=== PATIENT | male | born 1975 | race Caucasian/White ===

== ENCOUNTER 2022-05-11 13:35 | Inpatient (IN) | payer MEDICAID ==
[~2022-05-11] VITALS: Ht 165.1 cm; Wt 64.9 kg
[2022-05-11] MEDS ORDERED: NITROGLYCERIN 0.4 MG TAB SL ONE (13:45)
[2022-05-11 13:47] VITALS: BP 106/65
--- NOTE | 2022-05-11 13:50 | NUR ---
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 PT GCS 15, PALE COOL DIAPHORETIC. NSR ON MONITOR. IV NOTED TO LEFT AC #18GUAGE. DR KEMP AT BEDSIDE.
[2022-05-11] MEDS ORDERED: fentaNYL citrate 0.05 MG/ML VIAL ONE (13:54)
[2022-05-11] MEDS ORDERED: fentaNYL citrate 0.05 MG/ML VIAL IM ONE (13:55)
[2022-05-11 14:00] LABS: BASOPHILS # (AUTO) 0.1 K/uL (0.00-0.22); BASOPHILS % (AUTO) 0.6 % (0.0-2.0); EOSINOPHILS # (AUTO) 0.1 K/uL (0-0.4); EOSINOPHILS % (AUTO) 0.6 % (0.0-4.0); HEMATOCRIT 41.5 % (36-52); HEMOGLOBIN 14.4 g/dL (12.0-18.0); LYMPHOCYTES # (AUTO) 2.4 K/uL (2.0-11.5); LYMPHOCYTES % (AUTO) 18.8 % (20.5-51.1); MEAN CORPUSCULAR HEMOGLOBIN 30 pg (27-31); MEAN CORPUSCULAR HGB CONC 35 g/dL (33-37); MEAN CORPUSCULAR VOLUME 87.4 fL (80-94); MONOCYTES # (AUTO) 0.8 K/uL (0.8-1.0); MONOCYTES % (AUTO) 6.2 % (1.7-9.3); NEUTROPHILS # (AUTO) 9.3 K/uL (1.8-7.7); NEUTROPHILS % (AUTO) 73.8 % (42.2-75.2); PLATELET COUNT (AUTO) 346 K/uL (140-450); RED BLOOD CELL COUNT(AUTO) 4.74 MIL/uL (4.20-6.10); RED CELL DISTRIBUTION WIDTH 12.4 % (11.6-13.7); WHITE BLOOD COUNT (AUTO) 12.6 K/uL (4.8-10.8)
--- NOTE | 2022-05-11 14:20 | NUR ---
ASSISTED IN PT TRANSPORT TO CT
[2022-05-11 14:28] LABS: ANION GAP 17.6 (8-16); ASPARTATE AMINOTRANSFERASE 181 U/L (15-37); CARBON DIOXIDE 25.4 mmol/L (21-32); CHLORIDE 102 mmol/L (98-107); CREATININE 1.2 mg/dL (0.6-1.3); GFR ARICAN-AMERICAN 83 mL/min (>90); GLUCOSE 192 mg/dL (74-106); SODIUM SERUM 142 mmol/L (136-145); TOTAL BILIRUBIN 1.1 mg/dL (0.0-1.0); UREA NITROGEN, BLOOD 14 mg/dL (7-18)
--- NOTE | 2022-05-11 14:38 | NUR ---
ABG RETRIEVED AND REPORTED TO ERMD. PT PLACED ON 4L NC FOR COMFORT
[2022-05-11] MEDS ORDERED: ONDANSETRON 4 MG/2 ML VIAL IVP ONE (14:45)
[2022-05-11] MEDS ORDERED: HYDROmorphone PFS 2 MG/ML SYR IVP ONE (14:45)
--- NOTE | 2022-05-11 15:00 | NUR ---
PT MEDICATED FOR PAIN, NOW RESTING CALMLY
[2022-05-11] MEDS ORDERED: NACL 0.9% 1,000 ML IV ONE ×2 (15:10)
[2022-05-11] MEDS: NACL 0.9% 1,000 ML IV SCH ×2 (16:40→18:44)
[2022-05-11] MEDS ORDERED: MAG SULF 2000 MG/WATER PREMIX 50 ML IV PRN (16:45)
[2022-05-11] MEDS ORDERED: ACETAMINOPHEN 325 MG TAB PO PRN (16:45)
[2022-05-11] MEDS ORDERED: ONDANSETRON 4 MG/2 ML VIAL IVP PRN (16:45)
[2022-05-11] MEDS ORDERED: POTASSIUM CHLORIDE 10 MEQ TABER PO PRN (16:45)
[2022-05-11 18:45] VITALS: BP 148/95
--- NOTE | 2022-05-11 19:00 | NUR ---
RECEIVED PT FROM ER NURSE VIA [facility] FOR CONTINUITY OF CARE.PT IS ALERT AND AWAKE, PIV INTACT,NO DISTRESS NOTED
[2022-05-11] MEDS: MORPHINE SULFATE 2 MG/ML SYR IVP PRN ×2 (19:03→23:31)
[2022-05-11] MEDS: LORazepam 2 MG/ML VIAL IVP PRN (20:38)
[2022-05-11] MEDS: LEVOFLOXACIN 500 MG/D5W PREMIX 100 ML IV SCH (21:27)
[2022-05-12] VITALS: BP 149/95
[2022-05-12] MEDS: DOCUSATE SODIUM 100 MG GELCAP PO PRN ×2 (00:57→18:47)
--- NOTE | 2022-05-12 01:28 | NUR ---
TEXTED DR JOHNSON REGARDING PATIENT'S POTASSIUM OF 3.0. MD ORDERED K RIDER 40 MEQ. ORDER CARRIED OUT
[2022-05-12] MEDS ORDERED: HYDROmorphone 1 MG/ML AMP IVP SCH (02:45)
[2022-05-12] MEDS ORDERED: KCL 20 MEQ/WATER INJ PREMIX 200 ML IV SCH (02:45)
[2022-05-12] MEDS ORDERED: HYDROmorphone 1 MG/ML AMP ONE (02:55)
--- NOTE | 2022-05-12 03:05 | NUR ---
PATIENT COMPLAINED OF 10/10 ABDOMINAL PAIN. MORPHINE SULFATE DID NOT RELIEVE HIS PAIN. TEXTED MD TO ASK FOR A STRONGER PAIN MEDICATION. MD ORDERED DILAUDID I MG IVP. ORDER CARRIED OUT
--- NOTE | 2022-05-12 03:30 | NUR ---
PATIENT FELL ASLEEP AFTER ADMINISTERING DILAUDID
[2022-05-12 04:00] VITALS: BP 150/89
[2022-05-12] MEDS: MORPHINE SULFATE 2 MG/ML SYR IVP PRN ×3 (05:35→20:59)
[2022-05-12] MEDS: NACL 0.9% 1,000 ML IV SCH ×3 (05:51→18:05)
[2022-05-12 06:45] LABS: HEMATOCRIT 42.5 % (36-52); HEMOGLOBIN 14.9 g/dL (12.0-18.0); LYMPHOCYTES # (AUTO) 0.4 K/uL (2.0-11.5); LYMPHOCYTES % (AUTO) 3.5 % (20.5-51.1); MEAN CORPUSCULAR HEMOGLOBIN 31 pg (27-31); MEAN CORPUSCULAR HGB CONC 35 g/dL (33-37); MEAN CORPUSCULAR VOLUME 88.5 fL (80-94); MONOCYTES # (AUTO) 0.6 K/uL (0.8-1.0); MONOCYTES % (AUTO) 4.8 % (1.7-9.3); NEUTROPHILS # (AUTO) 11.1 K/uL (1.8-7.7); NEUTROPHILS % (AUTO) 91.7 % (42.2-75.2); PLATELET COUNT (AUTO) 275 K/uL (140-450); RED CELL DISTRIBUTION WIDTH 12.4 % (11.6-13.7); WHITE BLOOD COUNT (AUTO) 12.1 K/uL (4.8-10.8)
[2022-05-12 06:46] LABS: ALBUMIN 3.9 g/dL (3.4-5.0); ANION GAP 15.7 (8-16); CARBON DIOXIDE 25.3 mmol/L (21-32); CREATININE 0.9 mg/dL (0.6-1.3); TOTAL BILIRUBIN 0.7 mg/dL (0.0-1.0)
--- NOTE | 2022-05-12 07:10 | NUR ---
RECEIVED REPORT FROM NIGHTSGAFT NURSE CITLALI FOR CONTINUITY OF CARE. PT IS IN STABLE CONDITION, CURRENTLY AWAKE AND A/OX4. BREATHING IS EVEN, REGULAR AND UNLABORED ON ROOM AIR. PT IS CONTINENT OF THE BOWELS AND BLADDER AND ABLE TO AMBULATE INDEPENDENTLY. SKIN IS INTACT. PT CURRENTLY RUNNING 40MEQ K-RIDER HUNG BY NIGHTSGAFT SHANTAL GODWIN. PT COMPLAINING OF ABDOMINAL PAIN 02/14 CURRENTLY.
--- NOTE | 2022-05-12 07:44 | NUR ---
MEDICAL STUDENT IN TO SEE PT FOR DR. THAO. PT COMPLAINING OF SEVERE ABDOMINAL PAIN, NOTIFIED MED STUDENT FOR ADDITIONAL ORDERS. AWAITING FURTHER ORDERS.
[2022-05-12 08:00] VITALS: BP 153/102
[2022-05-12] MEDS ORDERED: HYDROmorphone PFS 2 MG/ML SYR IVP SCH (08:01)
--- NOTE | 2022-05-12 08:18 | NUR ---
MEDIATED WITH ORDERED ONE TIME DOSE DILAUDID 2MG.
--- NOTE | 2022-05-12 10:00 | NUR ---
VISUALLY ASSESSED PT, PT CURRENTLY SLEEPING. NO SIGNS OF DISTRESS NOTED AT THIS TIME.
[2022-05-12] MEDS: LEVOFLOXACIN 500 MG/D5W PREMIX 100 ML IV SCH (10:30)
--- NOTE | 2022-05-12 11:21 | NUR ---
PATIENT HAS BEEN SCREENED AND CATEGORIZED LOW NUTRITION RISK. PATIENT WILL BE SEEN WITHIN 7 DAYS OF ADMISSION. 05/11/22-05/18/[address]
[2022-05-12 12:00] VITALS: BP 156/96
--- NOTE | 2022-05-12 12:00 | NUR ---
DC PLANNING ASSESSMENT WAS COMPLETED UTILIZING WEB EDITORWINSOME, WEB EDITOR ID [id number]. PATIENT REPORTS RESIDING AT HOME WITH HIS FAMILY AT THE ADDRESS LISTED ON FILE. PATIENT IDENTIFIED OLGA SAPP, PARTNER, EMERGENCY CONTACT AND MDM. PATIENT DENIES HAVING AD IN PLACE AND DECLINED AD OFFERED BY SW. PATIENT REPORTS MEETING WITH PCP, NEEDED, LAST VISIT; 2020' PATIENT DENIES TAKING MEDICATIONS AT THIS TIME AND DENIED BARRIERS IN ACCESS TO MEDICATION IF NEEDED. PATIENT REPORTS PICKING UP MEDICATION FROM [facility] ON [address] IN [place], WHEN NEEDED. PATIENT REPORTS ADEQUATE FOOD SOURCE. 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 PATIENT DENIES MH/SA HX. PATIENT REPORTS LEGAL/FRAUD ISSUES AND WAS REQUESTING LEGAL ADVICE. SW DIRECTED PATIENT TO SENIOR EXECUTIVE ASSISTANT PROVIDED BY LOCAL COURT HOUSES, LEGAL ADVICE IS OUT OF MY SCOPE OF PRACTICE. PATIENT IN UNDERSTANDING. PATIENT REPORTS DC PLAN IS TO RETURN HOME, WITH PARTNER PROVIDING TRANSPORTATION AND AIDING IN CARE, IF REQUIRED. SADIA INQUIRED ON ADDITIONAL RESOURCES NEEDED, PATIENT DECLINED.
--- NOTE | 2022-05-12 12:50 | NUR ---
DR. PARTIDA IN TO SEE PT, PER . PT MAY HAVE LAPAROSCOPIC CHOLECYSTECTOMY TOMORROW IF PANCREATIC LAB VALUES IMPROVE, OR ON TUESDAY. PT AWARE, AND SIGNED CONSENT FORM.
--- NOTE | 2022-05-12 15:07 | NUR ---
PT COMPLAINED OF LUQ ABDOMINAL PAIN 12/15. MEDICATED PRN MORPHINE.
[2022-05-12 16:00] VITALS: BP 162/96
--- NOTE | 2022-05-12 16:40 | NUR ---
MUSIC INDUSTRY INTERN NOTIFIED ME OF PT'S HIGH BP 162/96. PT ALSO COMPLAINED OF FEELING BLOATED AND CONSTIPATED. NOTIFIED DR. THAO FOR PRNS.
[2022-05-12] MEDS ORDERED: POLYETHYLENE GLYCOL 17 GM/PKT PO PRN (17:50)
[2022-05-12] MEDS: hydrALAZINE 20 MG/ML VIAL IVP PRN (18:46)
--- NOTE | 2022-05-12 18:46 | NUR ---
MEDICATED PT WITH PRN HYDRALAZINE FOR SBP>160 AND MIRALX FOR CONSTIPATION.
--- NOTE | 2022-05-12 19:20 | NUR ---
ENDORSED PT TO NIGHTSHIFT NURSE BRIDGETTE FOR CONTINUITY OF CARE. PT IN STABLE CONDITION.
--- NOTE | 2022-05-12 19:21 | NUR ---
RECEIVED ENDORSEMENT FOR CONTINUITY OF CARE FROM ANDREA MURGUIA, PATIENT WAS STABLE AT THE CHANGE OF SHIFT. PATIENT WAS IN BED ALERT ABLE TO HOLD A CONVERSATION WITH FAMILY AT BEDSIDE. PATIENT WAS INFORMED THAT AFTER MIDNIGHT NPO FOR POSSIBLE SURGERY. PATIENT DENIED ANY PAIN/DISCOMFORT. NURSING NOTED PATIENT WAS BREATHING WITHOUT DISTRESS OR DIFFICULTIES. SIDE RAILS UP X 2. CALL LIGHT WITHIN REACH AND EXPLAINED TO PLEASE USE FOR ASSISTANCE AND NEEDS. PATIENT UNDERSTANDS AND AGREES. PER PATIENT PERMISSION HIS DAUGHTER WAS INFORMED OF THE POSSBLE SURGERY BASED ON HIS LABS. [email or web address]
[2022-05-12 20:00] VITALS: BP 164/93
--- NOTE | 2022-05-12 21:37 | NUR ---
PATIENT WAS GIVEN PRN PAIN MANAGEMENT BY COVERING SENIOR CARE ASSISTANT (KAL). NOTED BP WAS 164/93 HR 94. PATIENT COMPLAINED OF STOMACH PAIN. PACING IN HIS ROOM AND HALLWAY. ENCOURAGED TO PLEASE WAIT IN ROOM TO PREVENT INJURY AND IV PULLING OUT. PATIENT UNDERSTOOD AND COMPLIED. [email or web address]
[2022-05-12] MEDS: ZOLPIDEM 10 MG TAB PO PRN (22:52)
--- NOTE | 2022-05-12 23:21 | NUR ---
PATIENT IN BED ASLEEP AT THIS TIME. SIDE RAILS UP AND CALL LIGHT WITHIN REACH. NO NOTED S/S OF PAIN/DISCOMFORT. NO NOTED RESPIRATORY DISTRESS. NURSING WILL CONTINUE TO MONITOR FOR PAIN MANAGEMENT. [email or web address]
--- NOTE | 2022-05-13 01:21 | NUR ---
PATIENT IN BED ASLEEP. PATIENT HAS NO NOTED S/S OF PAIN. CALL LIGHT WITHIN REACH. [email or web address]
[2022-05-13] MEDS: hydrALAZINE 20 MG/ML VIAL IVP PRN (02:04)
[2022-05-13] MEDS: NACL 0.9% 1,000 ML IV SCH ×4 (02:17→20:38)
--- NOTE | 2022-05-13 02:17 | NUR ---
PATIENT COMPLAINED OF PAIN, COVERING RN WAS GIVEN BP AND HR TO GIVE THE MEDICATION. NURSING WILL REASSESS FOR EFFECTIVENESS. [email or web address]
[2022-05-13] MEDS: MORPHINE SULFATE 2 MG/ML SYR IVP PRN ×3 (02:30→23:22)
--- NOTE | 2022-05-13 03:42 | NUR ---
PATIENT CONTINUES TO ASK FOR MEDICATION BUT IT IS NOT DUE. USED TV DISTRACTION AND ENCOURAGED TO GET REST FOR POSSIBLE SURGERY BASED ON THE LAB RESULTS. SIDE RAILS UP CALL LIGHT WITHIN REACH. [email or web address]
[2022-05-13 04:00] VITALS: BP 158/95
--- NOTE | 2022-05-13 05:09 | NUR ---
PATIENT WAS THRASHING AROUND IN HIS BED D/T PAIN COMPLAINTS. COVERING RN WAS INFORMED. PATIENT WAS EDUCATION ON REQUESTING MEDICATIONS TOO SOON CAN BUILD TO ANXIETY. NURSING REMINDED PATIENT OF POSSIBLE SURGERY TODAY BASED ON THE LAB VALUES. SIDERAILS UP X 2 . CALL LIGHT WITHIN REACH. [email or web address]
--- NOTE | 2022-05-13 05:53 | NUR ---
PATIENT PULLED OUT IV BY CONSTANTLY STANDING OUTSIDE OF HIS ROOM YELLING FOR NURSE AFTER USING THE CALL LIGHT. PATIENT BECAME ANGRY BECAUSE HE PULLED THE IV AND WANTS IV MEDICATION. PATIENT WAS CLEANED UP THEN WAS ASKED TO REMAIN IN HIS ROOM UNTIL NURSING FINISH AM MEDICATION TO OTHER PATIENTS. COVERING RN WAS INFORMED TO POSSIBLE RESTART AN IV. [email or web address]
--- NOTE | 2022-05-13 07:04 | NUR ---
RECEIVED REPORT FROM NIGHTSHIFT NURSE ANGELES FOR CONTINUITY OF CARE. PT IS IN STABLE CONDITION. PT IS A/OX4, BREATHING EVEN, REGULAR AND UNLABORED ON ROOM AIR. PT IS CONTINENT OF THE BOWEL AND BLADDER, AND ABLE TO AMBULATE INDEPENDENTLY. SKIN IS INTACT. PER NIGHTSHIFT NURSE ANGELES, PT REMOVED IV AND HAS REFUSED ONE SINCE 0600. WILL REINFORCE EDUCATION ON IV NECESSITY AND OVERALL HEALTHCARE PLAN.
--- NOTE | 2022-05-13 07:04 | NUR ---
PATIENT WAS READY TO LEAVE AMA UNTIL NURSING GAVE EDUCATION TO THE DANGERS AND THE DELAY TO POSSIBLE SURGERY. PATIENT WAS STABLE DURING SHIFT CHANGE. PATIENT WAS ENDORSED TO HOLGER MURGUIA. [email or web address]
[2022-05-13 07:10] LABS: BASOPHILS % (AUTO) 0.2 % (0.0-2.0); HEMATOCRIT 37.8 % (36-52); HEMOGLOBIN 13.2 g/dL (12.0-18.0); LYMPHOCYTES # (AUTO) 0.8 K/uL (2.0-11.5); LYMPHOCYTES % (AUTO) 6.1 % (20.5-51.1); MEAN CORPUSCULAR HEMOGLOBIN 31 pg (27-31); MEAN CORPUSCULAR HGB CONC 35 g/dL (33-37); MEAN CORPUSCULAR VOLUME 87.6 fL (80-94); MONOCYTES # (AUTO) 0.7 K/uL (0.8-1.0); MONOCYTES % (AUTO) 4.9 % (1.7-9.3); NEUTROPHILS # (AUTO) 12.2 K/uL (1.8-7.7); NEUTROPHILS % (AUTO) 88.8 % (42.2-75.2); PLATELET COUNT (AUTO) 228 K/uL (140-450); RED BLOOD CELL COUNT(AUTO) 4.32 MIL/uL (4.20-6.10); RED CELL DISTRIBUTION WIDTH 12.5 % (11.6-13.7); WHITE BLOOD COUNT (AUTO) 13.8 K/uL (4.8-10.8)
[2022-05-13 07:32] LABS: ALBUMIN 3.4 g/dL (3.4-5.0); ANION GAP 15.8 (8-16); CARBON DIOXIDE 23.7 mmol/L (21-32); CREATININE 0.7 mg/dL (0.6-1.3); POTASSIUM 3.5 mmol/L (3.5-5.1)
[2022-05-13 08:00] VITALS: BP 148/95
--- NOTE | 2022-05-13 08:00 | NUR ---
HYDRALAZINE REASSESSMENT NOT DOCUMENTED BY NIGHTSHIFT NURSE LAST NIGHT.
--- NOTE | 2022-05-13 09:00 | NUR ---
PT EDUCATED ON IV NECESSITY AND MEDICATIONS ORDERED. NEW IV INSERTED ON RIGHT UPPER ARM.
[2022-05-13] MEDS: LEVOFLOXACIN 500 MG/D5W PREMIX 100 ML IV SCH (09:06)
[2022-05-13 09:43] LABS: PROTHROMBIN TIME 11.4 secs (10.8-13.4)
[2022-05-13] MEDS: LORazepam 2 MG/ML VIAL IVP PRN (10:16)
--- NOTE | 2022-05-13 10:16 | NUR ---
HARISH ZAMBRANO IN TO SEE PT, NOTIFIED PT OF POSSIBLE LAP CHRIS PENDING PANCREATIC ENZYME LEVELS. PT COMPLAINED OF ANXIETY AND RESTLESSNESS. MEDICATED PRN ATIVAN.
--- NOTE | 2022-05-13 12:14 | NUR ---
PT VISUALLY ASSESSED. CURRENTLY SLEEPING, NO SIGNS OF PAIN OR DISTRESS NOTED.
--- NOTE | 2022-05-13 14:15 | NUR ---
PT VISUALLY ASSESSED. CURRENTLY SLEEPING, NO SIGNS OF PAIN OR DISTRESS NOTED.
--- NOTE | 2022-05-13 14:15 | NUR ---
MESSAGED DR PARTIDA REGARDING PTS SURGERY BEING TODAY OR NOT, HE SAID IT WILL BE TOMORROW MORNING AT 0730. ALSO ASKED IF PATIENT WAS ALLOWED TO EAT AND WHAT DIET; HE SAID HE COULD EAT AND PUT HIM ON A LOW FAT DIET TILL MIDNIGHT.
--- NOTE | 2022-05-13 15:45 | NUR ---
GAVE PT A SANDWICH, WATER AND JELLO TO HOLD PATIENT OVER TILL DINNER. PTS FAMILY AT BEDSIDE. PT IN BED RESTING, NO SIGNS OF DISTRESS OR LABORED BREATHING.
[2022-05-13 16:00] VITALS: BP 154/98
--- NOTE | 2022-05-13 19:00 | NUR ---
PT MEDICATED FOR PAIN WITH PRN MORPHINE
--- NOTE | 2022-05-13 19:10 | NUR ---
ENDORSEMENT OF CARE TO SECURITY INCIDENT HANDLER NURSE AKUA RN FOR CONTINUITY OF CARE
--- NOTE | 2022-05-13 19:15 | NUR ---
RECEIVED REPORT FROM DAY SHIFT RN FOR CONTINUITY OF CARE. PT IS AAOX4. PT IS ON RA. FAMILY BY BEDSIDE. PT HAS OMEGA 20 GAUGE RUNNING NS 150 CC/HR. PT DENEIS ANY PAIN AND HAS NO COMPLAINS. CALL LIGHT WITHIN REACH. WILL CONTINUE TO MONITOR THE PT.
[2022-05-13 20:00] VITALS: BP 142/95
--- NOTE | 2022-05-13 20:39 | NUR ---
NEW IVF HUNG. PT IS ASLEEP. NOT IN ANY DISTRESS. WILL CONTINUE TO MONITOR THE PT.
--- NOTE | 2022-05-13 23:30 | NUR ---
PT COMPLAINED OF ABD PAIN 02/14. MORPHINE GIVEN PER MD ORDER. NO OTHER COMPLAINS.
[2022-05-14] MEDS: MORPHINE SULFATE 2 MG/ML SYR IVP PRN ×3 (03:31→22:24)
--- NOTE | 2022-05-14 03:35 | NUR ---
PT COMPLAINED OF ABD PAIN. GAVE MORPHINE PER MD ORDER. NO OTHER COMPLAINS. WILL CONTINUE TO MONITOR THE PT.
[2022-05-14 04:00] VITALS: BP 166/101
[2022-05-14] MEDS: hydrALAZINE 20 MG/ML VIAL IVP PRN (04:11)
[2022-05-14 04:56] LABS: BASOPHILS % (AUTO) 0.1 % (0.0-2.0); EOSINOPHILS % (AUTO) 0.1 % (0.0-4.0); HEMATOCRIT 40.1 % (36-52); HEMOGLOBIN 14.1 g/dL (12.0-18.0); LYMPHOCYTES # (AUTO) 0.9 K/uL (2.0-11.5); MEAN CORPUSCULAR HEMOGLOBIN 31 pg (27-31); MEAN CORPUSCULAR HGB CONC 35 g/dL (33-37); MEAN CORPUSCULAR VOLUME 87.5 fL (80-94); MONOCYTES # (AUTO) 0.8 K/uL (0.8-1.0); MONOCYTES % (AUTO) 5.7 % (1.7-9.3); NEUTROPHILS # (AUTO) 12.6 K/uL (1.8-7.7); NEUTROPHILS % (AUTO) 88.1 % (42.2-75.2); PLATELET COUNT (AUTO) 204 K/uL (140-450); RED BLOOD CELL COUNT(AUTO) 4.58 MIL/uL (4.20-6.10); RED CELL DISTRIBUTION WIDTH 12.5 % (11.6-13.7); WHITE BLOOD COUNT (AUTO) 14.3 K/uL (4.8-10.8)
[2022-05-14] MEDS: NACL 0.9% 1,000 ML IV SCH ×3 (05:04→18:24)
[2022-05-14 05:17] LABS: ANION GAP 15.4 (8-16); CREATININE 0.7 mg/dL (0.6-1.3); POTASSIUM 3.4 mmol/L (3.5-5.1)
--- NOTE | 2022-05-14 07:13 | NUR ---
ENDORSED PT TO DAY SHIFT RN FOR CONTINUITY OF CARE. PT IS STABLE.
[2022-05-14] MEDS ORDERED: BUPIVACAINE-MPF/EPI 0.25% 30 ML VIAL INJ ONE (07:14)
--- NOTE | 2022-05-14 07:15 | NUR ---
RECEIVED REPORT FROM NIGHTSHIFT NURSE AKUA FOR CONTINUITY OF CARE. PT IS IN STABLE CONDITION, CURRENTLY AWAKE AND A/OX4. BREATHING IS EVEN, REGULAR AND UNLABORED ON ROOM AIR. PT IS CONTINENT OF THE BOWELS AND BLADDER AND ABLE TO AMBULATE INDEPENDENTLY. SKIN IS INTACT. PT CURRENTLY RUNNING NS 150ML/HR. IV IS A 20G ON THE R UPPER ARM INTACT AND PATENT. PT HAS NO COMPLAINT OF ANY PAIN AT THIS TIME. SAFETY PRECAUTIONS IN PLACE, CALL LIGHT WITHIN REACH, TWO SIDE RAILS UP, AND WILL CONTINUE TO MONITOR.
--- NOTE | 2022-05-14 07:20 | NUR ---
PT TAKEN TO SURGERY BY SURGICAL STAFF.
[2022-05-14] MEDS ORDERED: fentaNYL citrate 0.05 MG/ML VIAL ONE (07:50)
[2022-05-14] MEDS ORDERED: PROPOFOL 200 MG/20 ML VIAL IV ONE ×2 (07:51→10:01)
[2022-05-14] MEDS ORDERED: ROCURONIUM 50 MG/5 ML VIAL IV ONE ×3 (07:51→10:01)
[2022-05-14] MEDS ORDERED: ONDANSETRON 4 MG/2 ML VIAL ONE ×2 (07:51→10:01)
[2022-05-14] MEDS ORDERED: SUCCINYLCHOLINE CHLORIDE 200 MG/10 ML VIAL IVP ONE (07:51)
[2022-05-14] MEDS ORDERED: KETOROLAC 30 MG/ML VIAL ONE ×2 (07:51→10:01)
[2022-05-14] MEDS ORDERED: SUGAMMADEX SODIUM 200 MG/2 ML VIAL IV ONE ×2 (07:52→10:01)
[2022-05-14] MEDS ORDERED: HYDROmorphone PFS 2 MG/ML SYR ONE ×2 (07:52→10:01)
[2022-05-14] MEDS ORDERED: DEXAMETHASONE 4 MG/ML VIAL ONE (07:52)
[2022-05-14] MEDS ORDERED: HYDROmorphone 1 MG/ML AMP IVP PRN (08:00)
[2022-05-14] MEDS ORDERED: ONDANSETRON 4 MG/2 ML VIAL IVP PRN (08:00)
--- NOTE | 2022-05-14 08:22 | NUR ---
RECEIVE ENDORSEMENT FROM PM SHIFT WHILE PATIENT RESTING IN BED, PRE-OPERATION FOR LAP COLI, PIV NS 150ML/HR INFUSING VIA OMEGA 20G. WILL CONTINUE TO MONITOR
[2022-05-14] MEDS ORDERED: LABETALOL 100 MG/20 ML VIAL ONE (08:26)
[2022-05-14] MEDS: LEVOFLOXACIN 500 MG/D5W PREMIX 100 ML IV SCH (09:00)
[2022-05-14] MEDS ORDERED: fentaNYL citrate 0.05 MG/ML - 50mL vial IV ONE (10:01)
[2022-05-14] MEDS ORDERED: LABETALOL 20 MG/4 ML VIAL IVP ONE (10:01)
--- NOTE | 2022-05-14 10:10 | NUR ---
AROUND 0745, OR NURSE EDUCATION PARAPROFESSIONAL PATIENT FOR LAP. COLI. WILL CONTINUE TO MONITOR
--- NOTE | 2022-05-14 11:07 | NUR ---
AROUND 1100, PATIENT RETURN THE UNIT FROM OR WITH NO ACUTE DISTRESS NOTED. 4 LAP. COLI INSERTION SITES ON ABDOMEN & 1 MANISH DRAIN AT R. SIDE OF ABDOMEN. FAMILY AT BEDSIDE. NS INFUSING AT 80ML/HR VIA PIV OMEGA 20G. WILL CONTINUE TO MONITOR Addendum: 05/14/22 at 1129 by Penny Frye RN CORRECTIOMN Addendum: 05/14/22 at 1132 by Penny Frye RN CORRECTION: PATIENT BACK FROM OR WITH IV FLUID LR @80ML/HR. AROUND 1130. PATIENT'S PRIMARY IV FLUID CHANGE TO NS @150ML.HR. WILL CONTINUE TO MONITOR
[2022-05-14] MEDS: metroNIDAZOLE 500 MG/NS PREMIX 100 ML IV SCH ×2 (13:39→20:38)
[2022-05-14] MEDS: CHLORHEXADINE GLUC 2% CLOTH TP SCH (15:06)
[2022-05-14] MEDS: MUPIROCIN CA NASAL 2% 1GM TUBE NS SCH (15:06)
[2022-05-14] MEDS ORDERED: MUPIROCIN CA NASAL 2% 1GM TUBE NS SCH (17:00)
--- NOTE | 2022-05-14 19:09 | NUR ---
ENDORSE PATIENT TO PM SHIFT WHILE PATIENT RESTING IN BED, LAP COLI, DONE, MRSA POSITIVE FOR NARES, PIV NS 150ML/HR INFUSING VIA OMEGA 20G
--- NOTE | 2022-05-14 19:10 | NUR ---
RECEIVED REPORT FROM DAY SHIFT RN FOR CONTINUITY OF CARE. PT IS AWAKE WITH SON BY BEDSIDE. PT IS AAOX4 ON RA. PT IS NOT IN ANY DISTRESS. PT COMPLAINS OF ABD PAIN 3/10 BUT TOLERABLE. PT HAS OMEGA 20 GAUGE RUNNING NS 150 CC/HR. PT HAD LAP CHRIS TODAY. PT HAS 4 INCISIONS WITH MANISH DRAIN ON RIGHT SIDE OF ABD. PLAN OF CARE DISCUSSED. WILL CONTINUE TO MONITOR THE PT.
[2022-05-14 20:00] VITALS: BP 133/81
[2022-05-14] MEDS: HYDROcodone/APAP 5/325 MG 1 TAB TAB PO PRN (20:39)
--- NOTE | 2022-05-14 20:44 | NUR ---
SCHEDULE MEDICATIONS GIVEN. NO ADVERSE REACTION NOTED. WILL CONTINUE TO MONITOR THE PT.
--- NOTE | 2022-05-14 22:30 | NUR ---
PT COMPLAIN OF ABD PAIN. GAVE MORPHINE PER MD ORDER. NO OTHER COMPLAINS.
[2022-05-14] MEDS: ZOLPIDEM 10 MG TAB PO PRN (23:29)
[2022-05-15] MEDS: NACL 0.9% 1,000 ML IV SCH ×4 (00:40→20:40)
[2022-05-15] MEDS: HYDROcodone/APAP 5/325 MG 1 TAB TAB PO PRN ×4 (01:38→19:30)
--- NOTE | 2022-05-15 01:45 | NUR ---
PT CONTINUE TO COMPLAIN OF ABD PAIN. NORCO GIVEN. PER MD ORDER.
[2022-05-15 04:00] VITALS: BP 144/61
[2022-05-15] MEDS: metroNIDAZOLE 500 MG/NS PREMIX 100 ML IV SCH (05:03)
--- NOTE | 2022-05-15 05:08 | NUR ---
SCHEDULE MEDICATIONS GIVEN. NO ADVERSE REACTION NOTED. WILL CONTINUE TO MONITOR THE PT.
--- NOTE | 2022-05-15 07:19 | NUR ---
ENDORSED PT TO DAY SHIFT RN FOR CONTINUITY OF CARE. PT IS STABLE.
[2022-05-15 07:22] LABS: BASOPHILS % (AUTO) 0.1 % (0.0-2.0); EOSINOPHILS % (AUTO) 0.1 % (0.0-4.0); HEMATOCRIT 31.3 % (36-52); HEMOGLOBIN 11.2 g/dL (12.0-18.0); LYMPHOCYTES # (AUTO) 1.1 K/uL (2.0-11.5); LYMPHOCYTES % (AUTO) 9.2 % (20.5-51.1); MEAN CORPUSCULAR HEMOGLOBIN 31 pg (27-31); MEAN CORPUSCULAR HGB CONC 36 g/dL (33-37); MEAN CORPUSCULAR VOLUME 87.1 fL (80-94); MONOCYTES # (AUTO) 0.8 K/uL (0.8-1.0); MONOCYTES % (AUTO) 6.5 % (1.7-9.3); NEUTROPHILS # (AUTO) 9.8 K/uL (1.8-7.7); NEUTROPHILS % (AUTO) 84.1 % (42.2-75.2); PLATELET COUNT (AUTO) 255 K/uL (140-450); RED BLOOD CELL COUNT(AUTO) 3.59 MIL/uL (4.20-6.10); RED CELL DISTRIBUTION WIDTH 12.6 % (11.6-13.7); WHITE BLOOD COUNT (AUTO) 11.7 K/uL (4.8-10.8)
[2022-05-15] MEDS: MORPHINE SULFATE 2 MG/ML SYR IVP PRN ×4 (07:40→22:16)
[2022-05-15 07:57] LABS: ALBUMIN 2.8 g/dL (3.4-5.0); ANION GAP 13.4 (8-16); CARBON DIOXIDE 21.9 mmol/L (21-32); CREATININE 0.6 mg/dL (0.6-1.3); POTASSIUM 3.3 mmol/L (3.5-5.1)
--- NOTE | 2022-05-15 08:39 | NUR ---
Patient awake, alert and oriented, able to verbalize needs. Complained of abdominal pain and was given medication as ordered. Safey co measures in place and has no further needs.
[2022-05-15] MEDS ORDERED: POTASSIUM CHLORIDE 10 MEQ TABER PO ONE (09:15)
[2022-05-15] MEDS: DOCUSATE SODIUM 100 MG GELCAP PO PRN (09:47)
[2022-05-15] MEDS: LEVOFLOXACIN 500 MG/D5W PREMIX 100 ML IV SCH (09:47)
[2022-05-15 12:00] VITALS: BP 144/94
[2022-05-15] MEDS: MUPIROCIN CA NASAL 2% 1GM TUBE NS SCH (14:40)
[2022-05-15] MEDS: CHLORHEXADINE GLUC 2% CLOTH TP SCH (14:42)
--- NOTE | 2022-05-15 19:20 | NUR ---
RECEIVED REPORT FROM DAY SHIFT RN FOR CONTINUITY OF CARE. PT IS AWAKE WITH BY BEDSIDE. PT IS AAOX4 ON RA YI SPEAKER. PT IS NOT IN ANY DISTRESS. PT COMPLAINS OF ABD PAIN 3/10 BUT TOLERABLE. PT HAS OMEGA 20 GAUGE RUNNING NS 150 CC/HR. PT HAD LAP CHRIS YESTERDAY. PT HAS 4 INCISIONS WITH MANISH DRAIN ON RIGHT SIDE OF ABD. PLAN OF CARE DISCUSSED. WILL CONTINUE TO MONITOR THE PT.
[2022-05-15 20:00] VITALS: BP 149/100
--- NOTE | 2022-05-15 22:20 | NUR ---
PT COMPLAIN OF ABD PAIN. GAVE MORPHINE PER MD ORDER. NO OTHER COMPLAINS. WILL CONTINUE TO MONITOR THE PT.
[2022-05-16] MEDS: ZOLPIDEM 10 MG TAB PO PRN (00:30)
--- NOTE | 2022-05-16 00:40 | NUR ---
PT WANTED SOMETHING FOR SLEEP. REBECCA GIVEN PER MD ORDER. NO OTHER COMPLAINS. WILL CONTINUE TO MONITOR THE PT.
[2022-05-16] MEDS: NACL 0.9% 1,000 ML IV SCH ×2 (03:27→06:35)
[2022-05-16 04:00] VITALS: BP 145/93
[2022-05-16] MEDS: MORPHINE SULFATE 2 MG/ML SYR IVP PRN (04:11)
[2022-05-16] MEDS: HYDROcodone/APAP 5/325 MG 1 TAB TAB PO PRN (06:35)
[2022-05-16 07:03] LABS: BASOPHILS # (AUTO) 0.1 K/uL (0.00-0.22); BASOPHILS % (AUTO) 0.4 % (0.0-2.0); EOSINOPHILS % (AUTO) 0.2 % (0.0-4.0); HEMATOCRIT 34.6 % (36-52); LYMPHOCYTES # (AUTO) 1.2 K/uL (2.0-11.5); LYMPHOCYTES % (AUTO) 8.5 % (20.5-51.1); MEAN CORPUSCULAR HEMOGLOBIN 31 pg (27-31); MEAN CORPUSCULAR HGB CONC 35 g/dL (33-37); MEAN CORPUSCULAR VOLUME 88.1 fL (80-94); MONOCYTES # (AUTO) 1.2 K/uL (0.8-1.0); MONOCYTES % (AUTO) 8.7 % (1.7-9.3); NEUTROPHILS # (AUTO) 11.6 K/uL (1.8-7.7); NEUTROPHILS % (AUTO) 82.2 % (42.2-75.2); PLATELET COUNT (AUTO) 289 K/uL (140-450); RED BLOOD CELL COUNT(AUTO) 3.93 MIL/uL (4.20-6.10); RED CELL DISTRIBUTION WIDTH 12.8 % (11.6-13.7); WHITE BLOOD COUNT (AUTO) 14.2 K/uL (4.8-10.8)
[2022-05-16 07:16] LABS: ALBUMIN 2.8 g/dL (3.4-5.0); CREATININE 0.7 mg/dL (0.6-1.3); TOTAL BILIRUBIN 1.1 mg/dL (0.0-1.0)
--- NOTE | 2022-05-16 07:33 | NUR ---
ENDORSED PT TO DAY SHIFT RN FOR CONTINUITY OF CARE. PT IS STABLE.
[2022-05-16] MEDS ORDERED: HYDR-5080 PO (07:53)
[2022-05-16 09:51] VITALS: BP 129/69
== END 2022-05-16 11:00 | disposition home or self-care (01) | DRG 710 ==
LOC: MED 13:35 → MTU 16:38
PROVIDERS: ADMIT Family Medicine; ATTEND Family Medicine
PROC: 0DNU4ZZ Release Omentum, Percutaneous Endoscopic Approach (ICD-10-PCS; 2022-05-14)
PROC: 0FT44ZZ Resection of Gallbladder, Percutaneous Endoscopic Approach (ICD-10-PCS; principal; 2022-05-14 07:30)
DX: A41.9 Sepsis, unspecified organism (principal); K85.10 Biliary acute pancreatitis without necrosis or infection; K80.10 Calculus of gallbladder with chronic cholecystitis without obstruction; E83.51 Hypocalcemia; R73.9 Hyperglycemia, unspecified; E87.6 Hypokalemia; I10 Essential (primary) hypertension; Z20.822 Contact with and (suspected) exposure to COVID-19
CPT/HCPCS: 36415; 36600; 71045; 71275; 76705; 80048; 80053; 82803; 83690; 83735; 84484; 85025; 85610; 85730; 86886; 86900; 86901; 87081; 93005; 96361; 96374; 96375; 99285; J0330; J0360; J1100; J1170; J1885; J1956; J2060; J2270; J2405; J2704; J3010; J3480; J3490; J7030; Q0092; Q9967

== ENCOUNTER 2022-10-26 22:41 | Inpatient (IN) | payer MEDICAID ==
[~2022-10-26] VITALS: Ht 172.7 cm; Wt 72.6 kg
[~2022-10-26 22:41] MED LIST: ACET-10509 PO; IBUP-2218 PO
[2022-10-26 23:00] VITALS: BP 124/77
--- NOTE | 2022-10-26 23:03 | NUR ---
TO LOBBY A/W BED AMBULATORY
--- NOTE | 2022-10-26 23:55 | NUR ---
PT TO BED #7
--- NOTE | 2022-10-26 23:55 | NUR ---
PT IS HERE FOR ABDOMINAL PAIN 08/10M ASSOCUIATED WITYH NAUSEA FROPM HOME AMBULATORY AND ROOM AIR
[2022-10-27] MEDS ORDERED: NACL 0.9% 1,000 ML IV ONE (00:30)
[2022-10-27] MEDS ORDERED: MORPHINE SULFATE 4 MG/ML SYR IVP ONE (00:30)
[2022-10-27] MEDS ORDERED: ONDANSETRON 4 MG/2 ML VIAL IVP ONE (00:30)
[2022-10-27 00:55] LABS: BASOPHILS # (AUTO) 0.1 K/uL (0.00-0.22); BASOPHILS % (AUTO) 0.5 % (0.0-2.0); EOSINOPHILS # (AUTO) 0.1 K/uL (0-0.4); EOSINOPHILS % (AUTO) 1.1 % (0.0-4.0); HEMATOCRIT 40.8 % (36-52); HEMOGLOBIN 13.9 g/dL (12.0-18.0); LYMPHOCYTES # (AUTO) 1.8 K/uL (2.0-11.5); LYMPHOCYTES % (AUTO) 13.6 % (20.5-51.1); MEAN CORPUSCULAR HEMOGLOBIN 29 pg (27-31); MEAN CORPUSCULAR HGB CONC 34 g/dL (33-37); MEAN CORPUSCULAR VOLUME 84.1 fL (80-94); MONOCYTES # (AUTO) 0.7 K/uL (0.8-1.0); NEUTROPHILS # (AUTO) 10.4 K/uL (1.8-7.7); NEUTROPHILS % (AUTO) 79.8 % (42.2-75.2); PLATELET COUNT (AUTO) 358 K/uL (140-450); RED BLOOD CELL COUNT(AUTO) 4.85 MIL/uL (4.20-6.10); RED CELL DISTRIBUTION WIDTH 14.2 % (11.6-13.7); WHITE BLOOD COUNT (AUTO) 13.1 K/uL (4.8-10.8)
[2022-10-27 01:15] LABS: ALBUMIN 3.9 g/dL (3.4-5.0); ANION GAP 10.7 (8-16); CARBON DIOXIDE 30.1 mmol/L (21-32); POTASSIUM 3.8 mmol/L (3.5-5.1); TOTAL BILIRUBIN 0.3 mg/dL (0.0-1.0)
[2022-10-27] MEDS ORDERED: ONDANSETRON 4 MG/2 ML VIAL IVP PRN ×2 (04:10→07:45)
[2022-10-27] MEDS ORDERED: MORPHINE SULFATE 2 MG/ML SYR IVP PRN (04:10)
[2022-10-27] MEDS ORDERED: IBUP-2213 PO (04:20)
[2022-10-27 05:30] VITALS: BP 128/86
--- NOTE | 2022-10-27 05:30 | NUR ---
RECEIVED PT A NEW ADMIT FROM ER. PATIENT IS AWAKE,ALERT AND ORIENTED X 4. AMBULATES WITH A STEADY GAIT. DENIES PAIN AT THIS TIME. NO ACUTE RESPIRATORY DISTRESS. SAFETY PRECAUTIONS IN PLACE, CALL LIGHT PLACED WITHIN REACH, INSTRUCTION ON USE PROVIDED, ENCOURAGED TO CALL IF ASSISTANCE IS NEEDED, PT VERBALLY AGREED.
[2022-10-27] MEDS: NACL 0.9% 1,000 ML IV SCH ×3 (05:44→20:34)
--- NOTE | 2022-10-27 05:54 | NUR ---
Patient will be admitted to care of acute pancreatitis. Admited to telemwtry. Will go to room 104 a. Belongings list completed. Report to
--- NOTE | 2022-10-27 06:16 | NUR ---
PATIENT IS ASLEEP. ALL NEEDS ATTENDED TO. NO S/SX OF PAIN. SAFETY PRECAUTIONS IN PLACE, CALL LIGHT IN REACH.
--- NOTE | 2022-10-27 07:25 | NUR ---
GOT REPORT FROM THE CASTING ROOM HELPER, PT SLEEPING NO SOB.[id number]
[2022-10-27] MEDS ORDERED: LORazepam 2 MG/ML VIAL IVP PRN (07:45)
[2022-10-27] MEDS ORDERED: ZOLPIDEM 10 MG TAB PO PRN (07:45)
[2022-10-27] MEDS ORDERED: MAG SULF 2000 MG/WATER PREMIX 50 ML IV PRN (07:45)
[2022-10-27] MEDS ORDERED: ACETAMINOPHEN 325 MG TAB PO PRN (07:45)
[2022-10-27] MEDS ORDERED: POTASSIUM CHLORIDE 10 MEQ TABER PO PRN (07:45)
[2022-10-27] MEDS ORDERED: DOCUSATE SODIUM 100 MG GELCAP PO PRN (07:45)
[2022-10-27 08:00] VITALS: BP 116/71
--- NOTE | 2022-10-27 09:16 | NUR ---
PATIENT HAS BEEN SCREENED AND CATEGORIZED MODERATE NUTRITION RISK. PATIENT WILL BE SEEN WITHIN 3-5 DAYS OF ADMISSION. / REVIEWED BY ANAIS JOSEPH RD
[2022-10-27 12:00] VITALS: BP 126/84
[2022-10-27] MEDS: AMYLASE/LIPASE/PROTEASE 1 CAPDR PO SCH ×2 (12:46→16:50)
[2022-10-27 16:00] VITALS: BP 113/74
[2022-10-27 17:55] LABS: APPEARANCE,URINE CLEAR (CLEAR); BILIRUBIN,URINE NEGATIVE (NEGATIVE); BLOOD, URINE NEGATIVE (NEGATIVE); COLOR,URINE YELLOW (YELLOW); LEUKOCYTE ESTERASE ,URINE NEGATIVE (NEGATIVE); NITRITE, URINE NEGATIVE (NEGATIVE); UGLUCOSE NEGATIVE (NEGATIVE)
--- NOTE | 2022-10-27 19:11 | NUR ---
GAVE REPORT TO THE NIGHT NURSE.[id number]
--- NOTE | 2022-10-27 19:15 | NUR ---
RECEIVED PATIENT ASLEEP, NO SIGNS OF PAIN NOTED, NO SIGNS OF DISTRESS NOTED, FAMILY AT BEDSIDE. CALL LIGHT WITHIN REACH.
[2022-10-27 19:32] LABS: BASOPHILS # (AUTO) 0.1 K/uL (0.00-0.22); BASOPHILS % (AUTO) 0.8 % (0.0-2.0); EOSINOPHILS # (AUTO) 0.1 K/uL (0-0.4); EOSINOPHILS % (AUTO) 1.4 % (0.0-4.0); HEMATOCRIT 39.6 % (36-52); HEMOGLOBIN 13.2 g/dL (12.0-18.0); MEAN CORPUSCULAR HEMOGLOBIN 28 pg (27-31); MEAN CORPUSCULAR HGB CONC 34 g/dL (33-37); MEAN CORPUSCULAR VOLUME 84.8 fL (80-94); MONOCYTES # (AUTO) 0.4 K/uL (0.8-1.0); NEUTROPHILS # (AUTO) 3.8 K/uL (1.8-7.7); NEUTROPHILS % (AUTO) 59.8 % (42.2-75.2); PLATELET COUNT (AUTO) 284 K/uL (140-450); RED BLOOD CELL COUNT(AUTO) 4.67 MIL/uL (4.20-6.10); RED CELL DISTRIBUTION WIDTH 14.4 % (11.6-13.7); WHITE BLOOD COUNT (AUTO) 6.4 K/uL (4.8-10.8)
[2022-10-27 19:47] LABS: ALBUMIN 3.5 g/dL (3.4-5.0); ANION GAP 14.3 (8-16); CARBON DIOXIDE 26.6 mmol/L (21-32); CREATININE 0.8 mg/dL (0.6-1.3); POTASSIUM 3.9 mmol/L (3.5-5.1); TOTAL BILIRUBIN 0.5 mg/dL (0.0-1.0)
[2022-10-27 20:00] VITALS: BP 129/76
--- NOTE | 2022-10-27 20:00 | NUR ---
VITALS TAKEN T 97.0, P 64, BP 129/76, RESP 18 AND O2 SATS 97% ON ROOM AIR, PATIENT DENIES PAIN UPON ASSESSMENT, BREATHING EVEN AND NON LABORED, IV ACCESS SITE ON RIGHT AC, INTACT AND PATENT. ALL SAFETY MEASURES IN PLACE.
--- NOTE | 2022-10-28 02:00 | NUR ---
PATIENT IS ASLEEP, BREATHING EVEN AND NON LABORED ON ROOM AIR, NO SIGNS OF PAIN NOTED. ALL SAFETY MEASURES IN PLACE.
[2022-10-28] MEDS: NACL 0.9% 1,000 ML IV SCH (02:22)
[2022-10-28 04:00] VITALS: BP 122/78
--- NOTE | 2022-10-28 04:02 | NUR ---
VITALS TAKEN T 98.0, P 58, BP 122/78, RESP 18 AND O2 SATS 97% ON ROOM AIR. PATIENT DENIES PAIN, IN NO ACUTE DISTRESS, ALL SAFETY MEASURES IN PLACE.
--- NOTE | 2022-10-28 07:17 | NUR ---
ENDORSED PATIENT TO DAY NURSE FOR CONTINUITY OF CARE. PATIENT IN STABLE CONDITION.
--- NOTE | 2022-10-28 07:20 | NUR ---
RECEIVED PT CARE AND REPORT FROM NOC SHIFT RN. PT IS RESTING IN BED SEMI FOWLERS, SUPINE WITH OU CLOSED. NO VISIBLE S/S OF DISTRESS, DISCOMFORT, PAIN OR SOB. CALL LIGHT IS WITHIN REACH, ALL NEEDS MET AT THIS TIME.
[2022-10-28 07:36] LABS: BASOPHILS % (AUTO) 0.3 % (0.0-2.0); EOSINOPHILS # (AUTO) 0.1 K/uL (0-0.4); HEMATOCRIT 41.2 % (36-52); HEMOGLOBIN 13.9 g/dL (12.0-18.0); LYMPHOCYTES # (AUTO) 2.4 K/uL (2.0-11.5); LYMPHOCYTES % (AUTO) 42.5 % (20.5-51.1); MEAN CORPUSCULAR HEMOGLOBIN 29 pg (27-31); MEAN CORPUSCULAR HGB CONC 34 g/dL (33-37); MEAN CORPUSCULAR VOLUME 85.5 fL (80-94); MONOCYTES # (AUTO) 0.4 K/uL (0.8-1.0); MONOCYTES % (AUTO) 6.6 % (1.7-9.3); NEUTROPHILS # (AUTO) 2.8 K/uL (1.8-7.7); NEUTROPHILS % (AUTO) 48.6 % (42.2-75.2); PLATELET COUNT (AUTO) 281 K/uL (140-450); RED BLOOD CELL COUNT(AUTO) 4.82 MIL/uL (4.20-6.10); RED CELL DISTRIBUTION WIDTH 14.3 % (11.6-13.7); WHITE BLOOD COUNT (AUTO) 5.8 K/uL (4.8-10.8)
[2022-10-28 07:45] LABS: ANION GAP 11.5 (8-16); CARBON DIOXIDE 28.7 mmol/L (21-32); CREATININE 0.7 mg/dL (0.6-1.3); POTASSIUM 4.2 mmol/L (3.5-5.1)
[2022-10-28 08:00] VITALS: BP 131/73
[2022-10-28] MEDS: AMYLASE/LIPASE/PROTEASE 1 CAPDR PO SCH ×3 (08:23→17:21)
[2022-10-28] MEDS: SENNA 8.6 MG TAB PO SCH (08:23)
--- NOTE | 2022-10-28 12:24 | NUR ---
DC PLANNING: PATIENT HAS AN ORDER TO GO TO [facility] FOR PSEUDOCYST DRAINAGE. FAXED TO [facility] [phone] [facility] . CM TO FOLLOW Addendum: 10/28/22 at 1335 by Pia Millan RN DC PLANNING CALLED [facility] BED CONTROL [phone] SPOKE WITH GARRY [employer] TO FAX WITH NUMBER [phone] ONCE REVIEW IT [facility] ANGELA WILL CALL BACK. CM TO FOLLOW Addendum: 10/28/22 at 7112 by Pia Millan RN DC PLANNING: [facility] BED CONTROL SPOKE WITH [place] STATED STILL REVIEWING THE CASE. CALLED [facility] SPOKE WITH MARIA A STATED AWAITING FOR THE PARMINDER ZAMBRANO TO REVIEW. [facility] CM TO FOLLOW Addendum: 10/28/22 at 1653 by Pia Millan RN DC PLANNING: CALLED [facility] NO ANSWER YET. [facility] STILL REVIEWING AWAITING FOR RESPONSE. CM PROVIDE ELECTRICAL SERVICE TECHNICIAN AND UNIT NUMBER. CM TO FOLLOW Addendum: 10/29/22 at 1203 by Pia Millan RN DC PLANNING: RECEIVED A MESSAGE FROM [facility] STATED UNABLE TO ACCEPT PATIENT BECAUSE NO BED AVAILABLE AT THIS TIME [facility] DECLINED THE CASE AWAITING FOR [facility]. CM TO FOLLOW Addendum: 10/29/22 at 1645 by Pia Millan RN DC PLANNING RECEIVED A CALL FROM [facility] SPOKE WITH YISSEL STATED NO BED AVAILABLE. CALLED [facility] SPOKE WITH NEAL STATED THEY ARE NOT [facility] AND DECLINED THE CASE. [facility] CM TO FOLLOW Addendum: 10/29/22 at 1654 by Pia Millan RN DC PLANNING: CALLED [facility] SPOKE WITH TRANSFER CENTER STATED NO BED AVAILABLE AT THIS TIME. CM TO FOLLOW
--- NOTE | 2022-10-28 15:00 | NUR ---
PT STABLE THROUGHOUT SHIFT WITH NO COMPLAINTS OF PAIN OR DISCOMFORT. FAMILY AT BEDSIDE.
[2022-10-28 16:00] VITALS: BP 125/80
--- NOTE | 2022-10-28 18:35 | NUR ---
PT IS RESTING IN BED SEMI FOWLERS WITH OU CLOSED. NO VISIBLE S/S OF DISTRESS, DISCOMFORT, PAIN OR SOB. CALL LIGHT IS WITHIN REACH, ALL NEEDS HAVE BEEN MET AT THIS TIME. WILL ENDORSE TO NOC SHIFT.
--- NOTE | 2022-10-28 19:10 | NUR ---
RECEIVED PATIENT FOR CONTINUITY OF CARE. PATIENT LYING ON THE BED, PATIENT IS AWAKE, ALERT AND ORIENTED, NO SIGNS OF DISTRESS NOTED, PATIENT DENIES PAIN. IV NS RUNNING @40MLS/HR ON RIGHT AC ACCESS SITE, LINE INTACT AND PATENT. FAMILY AT BEDSIDE, CALL LIGHT WITHIN REACH.
[2022-10-28 20:00] VITALS: BP 115/68
[2022-10-28] MEDS: PIPERACILLIN/TAZOBACTAM 3.375 GM in DEXTROSE 5% 50 ML IV SCH (20:21)
--- NOTE | 2022-10-28 20:21 | NUR ---
SCHEDULED IV ANTIBIOTIC GIVEN ORDERED.
--- NOTE | 2022-10-28 23:42 | NUR ---
CHECK ON PATIENT, PATIENT JUST USED THE RESTROOM, GAIT IS STEADY, PATIENT DENIES PAIN, IV INFUSING. BED IN LOW AND LOCKED POSITION, CALL LIGHT WITHIN REACH.
[2022-10-29] MEDS: NACL 0.9% 1,000 ML IV SCH ×2 (00:52→06:41)
--- NOTE | 2022-10-29 03:20 | NUR ---
[facility] STAFF PRITI CALLED OF PATIENT'S STATUS. PER STAFF [facility] RECEIVED REFERRAL FOR PATIENT TO BE TRANSFERRED FOR HLOC.
[2022-10-29 04:00] VITALS: BP 121/74
[2022-10-29] MEDS: PIPERACILLIN/TAZOBACTAM 3.375 GM in DEXTROSE 5% 50 ML IV SCH (04:09)
[2022-10-29 06:54] LABS: BASOPHILS % (AUTO) 0.7 % (0.0-2.0); EOSINOPHILS # (AUTO) 0.1 K/uL (0-0.4); EOSINOPHILS % (AUTO) 1.6 % (0.0-4.0); HEMATOCRIT 40.2 % (36-52); HEMOGLOBIN 13.8 g/dL (12.0-18.0); LYMPHOCYTES # (AUTO) 1.8 K/uL (2.0-11.5); LYMPHOCYTES % (AUTO) 34.2 % (20.5-51.1); MEAN CORPUSCULAR HEMOGLOBIN 29 pg (27-31); MEAN CORPUSCULAR HGB CONC 34 g/dL (33-37); MEAN CORPUSCULAR VOLUME 84.5 fL (80-94); MONOCYTES # (AUTO) 0.4 K/uL (0.8-1.0); MONOCYTES % (AUTO) 7.1 % (1.7-9.3); NEUTROPHILS # (AUTO) 2.9 K/uL (1.8-7.7); NEUTROPHILS % (AUTO) 56.4 % (42.2-75.2); PLATELET COUNT (AUTO) 299 K/uL (140-450); RED BLOOD CELL COUNT(AUTO) 4.76 MIL/uL (4.20-6.10); RED CELL DISTRIBUTION WIDTH 14.4 % (11.6-13.7); WHITE BLOOD COUNT (AUTO) 5.2 K/uL (4.8-10.8)
--- NOTE | 2022-10-29 07:08 | NUR ---
ENDORSED PATIENT TO DAY NURSE FOR CONTINUITY OF CARE. PATIENT IN STABLE CONDITION.
--- NOTE | 2022-10-29 07:28 | NUR ---
RECEIVED PT CARE AND REPORT FROM MAIKEL. PT IS RESTING IN BED SEMI FOWLERS WITH OU CLOSED. NO VISIBLE S/S OF DISTRESS, DISCOMFORT, PAIN OR SOB. CALL LIGHT IS WITHIN REACH, ALL NEEDS MET AT THIS TIME.
[2022-10-29 08:00] VITALS: BP 110/77
[2022-10-29 08:03] LABS: ANION GAP 12.6 (8-16); CARBON DIOXIDE 29.5 mmol/L (21-32); CREATININE 0.9 mg/dL (0.6-1.3); POTASSIUM 4.1 mmol/L (3.5-5.1)
[2022-10-29] MEDS: SENNA 8.6 MG TAB PO SCH (08:27)
[2022-10-29] MEDS: AMYLASE/LIPASE/PROTEASE 1 CAPDR PO SCH ×3 (08:27→17:54)
--- NOTE | 2022-10-29 14:00 | NUR ---
DC'D IV FLUIDS PER DOCTOR ORDER.
[2022-10-29 16:00] VITALS: BP 115/80
--- NOTE | 2022-10-29 18:40 | NUR ---
PT IS RESTING IN BED A&OX4, APPEARS CALM. NO VISIBLE S/S OF DISTRESS OR DISCOMFORT, DENIES ANY PAIN OR SOB. PT STABLE THROUGHOUT SHIFT. NO UPDATE ON [facility] PLACEMENT. CALL LIGHT IS WITHIN REACH, ALL NEEDS MET AT THIS TIME.
--- NOTE | 2022-10-29 19:17 | NUR ---
Patient's Plan of Care was discussed and reviewed with LINE RUNNER: IRIS WAY
--- NOTE | 2022-10-29 19:21 | NUR ---
RECEIVED REPORT FROM DAY SHIFT NURSE FOR CONTINUITY OF CARE. PT IS AWAKE IN BED, ALERT AND ORIENTED X4. FAMILY AT BEDSIDE. PT IS AMBULATORY AND CONTINENT. TOLERATED DINNER WELL. PT IS PRIMARILY SUDANESE SPEAKING BUT DOES UNDERSTAND YORUBA. NO PAIN STATED AT THIS TIME, CURRENTLY ON ROOM WITH NO RESPIRATORY DISTRESS NOTED. IV SITE LOCATED AT RIGHT AC 20 GAUGE. CALL LIGHT WITHIN REACH, SAFETY MEASURES IN PLACE, FAMILY MADE AWARE OF VISITING HOURS. WILL MONITOR FREQUENTLY THROUGHOUT SHIFT.
[2022-10-29 20:00] VITALS: BP 116/72
[2022-10-30] VITALS: BP 123/78
[2022-10-30 07:03] LABS: BASOPHILS % (AUTO) 0.6 % (0.0-2.0); EOSINOPHILS # (AUTO) 0.1 K/uL (0-0.4); HEMATOCRIT 41.2 % (36-52); LYMPHOCYTES # (AUTO) 2.1 K/uL (2.0-11.5); LYMPHOCYTES % (AUTO) 35.2 % (20.5-51.1); MEAN CORPUSCULAR HEMOGLOBIN 29 pg (27-31); MEAN CORPUSCULAR HGB CONC 34 g/dL (33-37); MEAN CORPUSCULAR VOLUME 84.4 fL (80-94); MONOCYTES # (AUTO) 0.4 K/uL (0.8-1.0); MONOCYTES % (AUTO) 7.1 % (1.7-9.3); NEUTROPHILS # (AUTO) 3.2 K/uL (1.8-7.7); NEUTROPHILS % (AUTO) 55.1 % (42.2-75.2); PLATELET COUNT (AUTO) 307 K/uL (140-450); RED BLOOD CELL COUNT(AUTO) 4.88 MIL/uL (4.20-6.10); RED CELL DISTRIBUTION WIDTH 14.1 % (11.6-13.7); WHITE BLOOD COUNT (AUTO) 5.8 K/uL (4.8-10.8)
[2022-10-30 07:10] LABS: ANION GAP 13.5 (8-16); CARBON DIOXIDE 29.2 mmol/L (21-32); CREATININE 0.8 mg/dL (0.6-1.3); POTASSIUM 3.7 mmol/L (3.5-5.1)
[2022-10-30] MEDS: SENNA 8.6 MG TAB PO SCH (08:23)
[2022-10-30] MEDS: AMYLASE/LIPASE/PROTEASE 1 CAPDR PO SCH ×2 (08:24→12:39)
[2022-10-30] MEDS ORDERED: AMOX-999 PO (10:19)
[2022-10-30 11:53] VITALS: BP 123/75
--- NOTE | 2022-10-30 13:06 | NUR ---
DISCUSSED DC PACKET, PROVIDED PT TEACHING REGARDING DISCHARGE. PT VERBALIZED UNDERSTANDING. IV REMOVED. PT GATHERED BELONGINGS. PT AMBULATED TO LOBBY ALONGSIDE . PT DC TO HOME. IN STABLE CONDITION.
== END 2022-10-30 14:22 | disposition home or self-care (01) | DRG 282 ==
LOC: MED 22:41 → MTU 10-27 04:14
PROVIDERS: ADMIT Family Medicine; ATTEND Family Medicine
DX: K85.21 Alcohol induced acute pancreatitis with uninfected necrosis (principal); K76.0 Fatty (change of) liver, not elsewhere classified; K86.3 Pseudocyst of pancreas; Z20.822 Contact with and (suspected) exposure to COVID-19; Z90.49 Acquired absence of other specified parts of digestive tract; Z79.899 Other long term (current) drug therapy; Z79.1 Long term (current) use of non-steroidal anti-inflammatories (NSAID)
CPT/HCPCS: 36415; 71045; 80048; 80053; 81003; 83690; 83735; 85025; 87081; 96361; 96374; 96375; 99285; J2270; J2405; J2543; J7060; Q0092; Q9967

== ENCOUNTER 2023-08-20 17:30 | Inpatient (IN) | payer MEDICAID ==
[~2023-08-20] VITALS: Ht 172.7 cm; Wt 71.7 kg
[~2023-08-20 17:30] MED LIST changes: -ACET-10509 PO; +AMOX-999 PO; +IBUP-2213 PO; -IBUP-2218 PO
[2023-08-20 17:51] VITALS: BP 140/93; PULSE 74; RESP 16; TEMP 98.9; O2SAT 100
[2023-08-20 18:24] LABS: BASOPHILS % (AUTO) 0.4 % (0.0-2.0); EOSINOPHILS % (AUTO) 0.5 % (0.0-4.0); HEMATOCRIT 40.1 % (36-52); LYMPHOCYTES # (AUTO) 1.4 K/uL (2.0-11.5); LYMPHOCYTES % (AUTO) 13.7 % (20.5-51.1); MEAN CORPUSCULAR HEMOGLOBIN 31 pg (27-31); MEAN CORPUSCULAR HGB CONC 35 g/dL (33-37); MEAN CORPUSCULAR VOLUME 88.2 fL (80-94); MONOCYTES # (AUTO) 0.5 K/uL (0.8-1.0); MONOCYTES % (AUTO) 5.2 % (1.7-9.3); NEUTROPHILS # (AUTO) 8.2 K/uL (1.8-7.7); NEUTROPHILS % (AUTO) 80.2 % (42.2-75.2); PLATELET COUNT (AUTO) 353 K/uL (140-450); RED BLOOD CELL COUNT(AUTO) 4.54 MIL/uL (4.20-6.10); RED CELL DISTRIBUTION WIDTH 12.6 % (11.6-13.7); WHITE BLOOD COUNT (AUTO) 10.3 K/uL (4.8-10.8)
[2023-08-20 18:36] LABS: ALBUMIN 4.1 g/dL (3.4-5.0); ANION GAP 10.4 (8-16); CALCIUM 9.1 mg/dL (8.5-10.1); CREATININE 0.8 mg/dL (0.6-1.3); POTASSIUM 4.4 mmol/L (3.5-5.1); TOTAL BILIRUBIN 0.5 mg/dL (0.0-1.0); TOTAL PROTEIN, SERUM 9.5 g/dL (6.4-8.2)
[2023-08-20 18:59] LABS: APPEARANCE,URINE CLEAR (CLEAR); BILIRUBIN,URINE NEGATIVE (NEGATIVE); BLOOD, URINE TRACE-I (NEGATIVE); COLOR,URINE YELLOW (YELLOW); LEUKOCYTE ESTERASE ,URINE NEGATIVE (NEGATIVE); NITRITE, URINE NEGATIVE (NEGATIVE); PROTEIN,URINE NEGATIVE (NEGATIVE); UGLUCOSE NEGATIVE (NEGATIVE); UROBILINOGEN,URINE 0.2 EU/dL (0.2 - 1)
[2023-08-20 19:02] LABS: BACTERIA,URINE None Seen /HPF (None Seen); MUCUS,URINE None Seen /LPF (None Seen); RBC,URINE 0-5 /HPF (0-5); SQUAMOUS EPITHELIAL CELL,UR 0-3 (FEW) /LPF (0-3 (FEW)); TRICHOMONAS,URINE None Seen /HPF (None Seen); WBC,URINE 0-5 /HPF (0-5); YEAST,URINE None Seen /HPF (None Seen)
[2023-08-20] MEDS ORDERED: ONDANSETRON 4 MG ODT PO ONE (19:15)
[2023-08-20] MEDS ORDERED: DICYCLOMINE HCL LIQUID 20 MG, ALUMINUM HYD/MAG/SIMETHICONE 30 ML, LIDOCAINE VISCOUS 2% ... PO ONE ×3 (19:15)
[2023-08-20] MEDS ORDERED: ALUMINUM HYD/MAG/SIMETHICONE 30 ML UDC ONE (19:17)
[2023-08-20] MEDS ORDERED: DICYCLOMINE HCL LIQUID 10 MG/5 ML UDC ONE (19:18)
[2023-08-20] MEDS ORDERED: PANTOPRAZOLE 40 MG TABEC PO ONE (20:30)
[2023-08-20] MEDS ORDERED: MORPHINE SULFATE 4 MG/ML SYR IM ONE (20:30)
[2023-08-20 23:28] VITALS: O2SAT 99
[2023-08-20] MEDS ORDERED: ACETAMINOPHEN 325 MG TAB PO PRN (23:30)
[2023-08-20] MEDS ORDERED: DEXT 5% /NACL 0.9% 1,000 ML IV SCH (23:30)
[2023-08-20] MEDS ORDERED: ONDANSETRON 4 MG/2 ML VIAL IVP PRN (23:30)
[2023-08-20] MEDS ORDERED: MORPHINE SULFATE 2 MG/ML SYR IVP PRN (23:30)
[2023-08-20] MEDS ORDERED: PANT40EC PO (23:50)
[2023-08-21] MEDS: HYDROcodone/APAP 5/325 MG 1 TAB TAB PO PRN ×2 (00:16→05:29)
[2023-08-21 01:42] VITALS: O2SAT 98
[2023-08-21 05:09] VITALS: O2SAT 98
[2023-08-21 07:12] LABS: BASOPHILS % (AUTO) 0.4 % (0.0-2.0); EOSINOPHILS # (AUTO) 0.1 K/uL (0-0.4); EOSINOPHILS % (AUTO) 0.7 % (0.0-4.0); HEMATOCRIT 38.9 % (36-52); HEMOGLOBIN 13.3 g/dL (12.0-18.0); LYMPHOCYTES # (AUTO) 1.7 K/uL (2.0-11.5); LYMPHOCYTES % (AUTO) 17.7 % (20.5-51.1); MEAN CORPUSCULAR HEMOGLOBIN 30 pg (27-31); MEAN CORPUSCULAR HGB CONC 34 g/dL (33-37); MEAN CORPUSCULAR VOLUME 88.6 fL (80-94); MONOCYTES # (AUTO) 0.7 K/uL (0.8-1.0); MONOCYTES % (AUTO) 7.5 % (1.7-9.3); NEUTROPHILS # (AUTO) 7.2 K/uL (1.8-7.7); NEUTROPHILS % (AUTO) 73.7 % (42.2-75.2); PLATELET COUNT (AUTO) 312 K/uL (140-450); RED BLOOD CELL COUNT(AUTO) 4.39 MIL/uL (4.20-6.10); RED CELL DISTRIBUTION WIDTH 12.4 % (11.6-13.7); WHITE BLOOD COUNT (AUTO) 9.8 K/uL (4.8-10.8)
[2023-08-21 07:22] LABS: ANION GAP 11.1 (8-16); CALCIUM 8.6 mg/dL (8.5-10.1); CARBON DIOXIDE 29.8 mmol/L (21-32); CREATININE 0.8 mg/dL (0.6-1.3); POTASSIUM 3.9 mmol/L (3.5-5.1)
[2023-08-21 08:05] VITALS: BP 153/85; PULSE 65; RESP 12; TEMP 97.1; O2SAT 100
== END 2023-08-21 10:03 | disposition left against medical advice (07) | DRG 282 ==
LOC: MED 17:30 → MTU 23:38
PROVIDERS: ADMIT Family Medicine; ATTEND Family Medicine
DX: K86.3 Pseudocyst of pancreas (principal); K31.1 Adult hypertrophic pyloric stenosis; Z53.29 Procedure and treatment not carried out because of patient's decision for other reasons; Z90.49 Acquired absence of other specified parts of digestive tract
CPT/HCPCS: 36415; 71045; 80048; 80053; 81001; 83690; 84484; 85025; 93005; 96372; 99285; J2270; J2405; Q0162